=== PATIENT | male | born 1940 | race Caucasian/White ===

== ENCOUNTER 2017-12-31 12:47 | Inpatient (IN) | payer MEDICARE, OTHER ==
[~2017-12-31] VITALS: Ht 175.3 cm; Wt 75.5 kg
--- NOTE | ~2017-12-31 | HP ---
PATIENT: DONIS ROSARIO MEDICAL RECORD: [id number] ACCOUNT: [id number] LOCATION:[address] : 39 ADMISSION DATE: 12/31/17 HISTORY AND PHYSICAL EXAMINATION REASON FOR ADMISSION: Confusion, fever, and cough. HISTORY OF PRESENT ILLNESS: The patient is a 77-year-old male with past history of paroxysmal atrial fibrillation, essential hypertension, and hyperlipidemia. The patient had sinusitis a week and a half ago that was treated with Augmentin. That seemed to improve, but he has had 3 days prior to admission while he was at work at [employer] he felt like something hit him and he just felt very tired. He said he had a cough that became worse over the next couple of days. His said that he did not feel feverish. He did not check his temperature. He came to the office this afternoon looking very ill and somewhat confused. His O2 sat was 88% initially, he was given a DuoNeb updraft and placed on and his sat improved to 92%. He had obvious audible wheezes, right lung greater than left. Chest x-ray showed some right hilar opacity, but no overt infiltrate. The patient was directly admitted for exacerbation of COPD with probable right middle lobe pneumonia and hypoxemia. He denies any leg swelling, sharp chest pain, or hemoptysis. PAST MEDICAL HISTORY: COPD, remote smoker, hypertension, hypothyroidism, hyperlipidemia, history of anxiety, prostate cancer, and post-prostatectomy. PAST SURGICAL HISTORY: Tonsillectomy, cardiac catheterization, cataract removal, and prostatectomy. FAMILY HISTORY: Father of stroke. Mother with dementia and heart disease. SOCIAL HISTORY: , remote smoker, still drinks alcohol, but not heavily. ALLERGIES: Antihistamines, steroids, and pravastatin. HOME MEDICATIONS: Losartan 100 mg a day, amlodipine 5 mg a day, Coreg 12.5 b.i.d., aspirin 81 mg a day, atorvastatin 40 mg at bedtime, levothyroxine 0.112 mg p.o. daily, Xanax 0.5 at bedtime p.r.n. anxiety, and Prilosec 20 mg daily. REVIEW OF SYSTEMS: GENERAL: He has been fatigued for the last 3-4 days. Denies fever. He has had poor appetite. HEENT: No recent visual change, sinus congestion, or sore throat. RESPIRATORY: He has had a dry cough that has been more pronounced for the last 2-3 days. Denies chest pain, but has noted mild exertional shortness of breath. No hemoptysis. CARDIAC: No palpitations, PND, edema, or chest pain. GASTROINTESTINAL: No nausea, vomiting, change in stools, blood per rectum or reflux. MUSCULOSKELETAL: He has arthralgias in the lumbar spine without sciatica. ENDOCRINE: Denies polyuria, polydipsia, heat or cold intolerance. NEUROLOGIC: Denies memory loss, but what has been a little confused for the last 2 days. Denies history of seizures. INTEGUMENT: No rash or itching. PHYSICAL EXAMINATION: HISTORY AND PHYSICAL [id number] DONIS ROSARIO VITAL SIGNS: Blood pressure 180/69, heart rate was 82 and regular, respirations were 20 with a temperature of 99 degrees Fahrenheit. GENERAL: The patient is awake and oriented, but fatigued appearing. HEENT: Normocephalic. Eyes were clear with lens implants both eyes. Sclerae nonicteric. Oropharynx dry mucous membranes. NECK: Supple with faint bruits bilaterally. CHEST: He has expiratory wheezes in the right upper lobe. Left lung is clear. HEART: Tachycardic without murmur. ABDOMEN: Soft, nontender throughout. Bowel sounds are active. Liver, kidney, spleen not palpable. GENITOURINARY: Unremarkable. EXTREMITIES: No CC&E. NEUROLOGICAL: The patient is oriented to person and place, but not time. No localizing motor or sensory deficits are appreciated. LABORATORY DATA: His white count is 9100 with 75 polys, 11 lymphs. H&H is 15 and 43 respectively. Potassium is 4.2, BUN and creatinine 22 and 0.9, glucose 127 nonfasting. TSH 0.71. Urinalysis is pending. Chest x-ray showed COPD changes with flat diaphragms. Questionable infiltrate in the right middle lobe. ASSESSMENT: 1. Chronic obstructive pulmonary disease exacerbation with hypoxemia. 2. Possible right middle lobe pneumonia, community-acquired. 3. Recent sinusitis. 4. Hypertension. 5. Paroxysmal atrial fibrillation, currently in sinus rhythm. 6. Hyperlipidemia. 7. History of prostate cancer. PLAN: The patient will be admitted for pulmonary updrafts, IV antibiotics, cultures of blood and urine, supplemental O2. Further workup pending clinical course. We will check a D-dimer as well. TRANSINT:[id number] Voice Confirmation ID: [id number] DOCUMENT ID: [id number] MARGIE STEINER MD at 0756 CC: [id number] DICTATION DATE: 12/31/17 173 OIL HEATERMAN: 12/31/17 2307 ADM IN [facility] [address] [place] [address]
[2017-12-31 14:36] VITALS: BP 180/69; Ht 175.3 cm; Wt 75.5 kg
[2017-12-31 14:50] LABS: BASOPHILS 0.1 % (0-2); EOSINOPHILS 0.2 % (0-7); HEMATOCRIT 43.3 % (42.0-54.0); IMMATURE GRANULOCYTES 0.4 % (0-5); LYMPHOCYTES 11.1 % (15-50); MCH 30.2 pg (26.0-34.0); MCHC 34.6 g/dL (31.0-37.0); MCV 87.3 fL (80.0-100.0); MEAN PLATELET VOLUME 10.2 fL (7.4-10.4); NEUTROPHILS 75.2 % (40-80); PLATELET COUNT 165 10x3/uL (130-400); RBC 4.96 10x6/uL (4.20-6.10); WBC 9.1 10x3/uL (4.8-10.8)
[2017-12-31 15:55] LABS: CALC OSMOLALITY 274 mosm/kg (275-300); CREATININE - SERUM 0.9 mg/dL (0.6-1.3); GLUCOSE 127 mg/dL (74-106); POTASSIUM - SERUM 4.2 mmol/L (3.5-5.1); SODIUM 135 mmol/L (136-145); UREA NITROGEN 22 mg/dL (7-18); eGFR NON AFRICAN AMERICAN 87 mL/min (90-120)
[2017-12-31 15:56] LABS: CALCIUM 8.6 mg/dL (8.5-10.1); CARBON DIOXIDE 31.3 mmol/L (21.0-32.0); CHLORIDE - SERUM 97 mmol/L (98-107); T4 THYROXINE 8.4 ug/dL (4.7-13.3); THYROID STIMULATING HORMONE 0.71 uIU/mL (0.36-3.74)
[2017-12-31] MEDS ORDERED: NORVASC5 MG PO (16:00)
[2017-12-31] MEDS ORDERED: LEVOTHYROXINE112 MCG PO (16:00)
[2017-12-31] MEDS ORDERED: LEVOTHYROXINE125 MCG PO (16:01)
[2017-12-31] MEDS ORDERED: COZAAR100 MG PO (16:03)
[2017-12-31] MEDS ORDERED: OMEPRAZOLE20 M1 PO (16:03)
[2017-12-31] MEDS ORDERED: COREG12.5 MG PO (16:04)
[2017-12-31 16:10] VITALS: BP 109/58
[2017-12-31 19:53] LABS: APPEARANCE CLEAR (CLEAR); BILIRUBIN NEGATIVE (NEGATIVE); COLOR YELLOW (YELLOW); GLUCOSE NEGATIVE (NEGATIVE); KETONE NEGATIVE (NEGATIVE); NITRITE NEGATIVE (NEGATIVE); PROTEIN TRACE mg/dL (NEGATIVE); RED CELLS - URINE 0-5 /hpf (0-5); UROBILINOGEN NORMAL (NORMAL); WHITE CELLS - URINE 0-5 /hpf (0-5)
[2017-12-31 20:00] VITALS: BP 125/39
[2018-01-01 04:00] VITALS: BP 140/64
[2018-01-01 05:16] LABS: BASOPHILS 0 % (0-2); EOSINOPHILS 0 % (0-7); HEMATOCRIT 42.5 % (42.0-54.0); HEMOGLOBIN 14.9 g/dL (13.5-17.5); IMMATURE GRANULOCYTES 0.3 % (0-5); LYMPHOCYTES 13.2 % (15-50); MCH 30.3 pg (26.0-34.0); MCHC 35.1 g/dL (31.0-37.0); MCV 86.4 fL (80.0-100.0); MEAN PLATELET VOLUME 10.7 fL (7.4-10.4); NEUTROPHILS 83.5 % (40-80); PLATELET COUNT 158 10x3/uL (130-400); RBC 4.92 10x6/uL (4.20-6.10)
[2018-01-01 05:24] LABS: CALC OSMOLALITY 275 mosm/kg (275-300); CALCIUM 8.3 mg/dL (8.5-10.1); CARBON DIOXIDE 26.6 mmol/L (21.0-32.0); CHLORIDE - SERUM 99 mmol/L (98-107); GLUCOSE 150 mg/dL (74-106); SODIUM 135 mmol/L (136-145); UREA NITROGEN 20 mg/dL (7-18); WBC 3.7 10x3/uL (4.8-10.8); eGFR NON AFRICAN AMERICAN 77 mL/min (90-120)
[2018-01-01 09:35] VITALS: BP 148/68
[2018-01-01 18:42] VITALS: BP 138/62
[2018-01-01 20:00] VITALS: BP 157/68
[2018-01-02 06:10] LABS: BASOPHILS 0 % (0-2); EOSINOPHILS 0 % (0-7); HEMATOCRIT 43.6 % (42.0-54.0); HEMOGLOBIN 14.9 g/dL (13.5-17.5); IMMATURE GRANULOCYTES 0.2 % (0-5); LYMPHOCYTES 7.2 % (15-50); MCH 29.9 pg (26.0-34.0); MCHC 34.2 g/dL (31.0-37.0); MCV 87.6 fL (80.0-100.0); MEAN PLATELET VOLUME 10.4 fL (7.4-10.4); MONOCYTES 3.7 % (2-11); NEUTROPHILS 88.9 % (40-80); RBC 4.98 10x6/uL (4.20-6.10); RDW 13.3 % (11.5-14.5)
[2018-01-02 06:16] LABS: PLATELET COUNT 231 10x3/uL (130-400); WBC 12.3 10x3/uL (4.8-10.8)
[2018-01-02 06:19] LABS: CALC OSMOLALITY 282 mosm/kg (275-300); CALCIUM 8.9 mg/dL (8.5-10.1); CHLORIDE - SERUM 104 mmol/L (98-107); CREATININE - SERUM 0.9 mg/dL (0.6-1.3); GLUCOSE 146 mg/dL (74-106); MAGNESIUM - SERUM 2.3 mg/dL (1.8-2.4); PHOSPHOROUS 2.7 mg/dL (2.5-4.9); POTASSIUM - SERUM 4.2 mmol/L (3.5-5.1); SODIUM 139 mmol/L (136-145); UREA NITROGEN 19 mg/dL (7-18); eGFR NON AFRICAN AMERICAN 87 mL/min (90-120)
[2018-01-02 09:35] VITALS: BP 142/60
[2018-01-02 12:26] VITALS: BP 130/70
[2018-01-02 16:57] VITALS: BP 154/72
[2018-01-02 21:06] VITALS: BP 158/57
[2018-01-03 04:32] VITALS: BP 121/76
[2018-01-03 08:27] VITALS: BP 150/76
[2018-01-03 11:12] VITALS: BP 140/75
[2018-01-03 16:18] VITALS: BP 142/70
[2018-01-03 19:00] VITALS: BP 158/71
[2018-01-04 01:10] VITALS: BP 154/57
[2018-01-04 05:28] VITALS: BP 160/75
[2018-01-04 09:27] VITALS: BP 169/79
[2018-01-04 12:09] VITALS: BP 148/68
[2018-01-04 15:05] VITALS: BP 172/70
[2018-01-04 20:00] VITALS: BP 155/87
[2018-01-05] VITALS: BP 151/77
[2018-01-05 04:00] VITALS: BP 148/76
[2018-01-05] MEDS ORDERED: XOPENEX 1.1.25 MG/3 UPD (07:52)
[2018-01-05] MEDS ORDERED: BROVANA15 MCG/2 M INH (07:52)
[2018-01-05] MEDS ORDERED: ATROVENT 0.02%2.5 ML UPD (07:53)
[2018-01-05] MEDS ORDERED: SINGULAIR10 MG PO (07:54)
[2018-01-05] MEDS ORDERED: BENZONATATE200 MG PO (07:54)
[2018-01-05] MEDS ORDERED: MUCINEX600 MG PO (07:54)
[2018-01-05] MEDS ORDERED: XANAX0.25 MG PO (07:56)
[2018-01-05] MEDS ORDERED: PREDNISONE20 MG PO (07:56)
[2018-01-05] MEDS ORDERED: LEVAQUIN500 MG PO (07:57)
[2018-01-05 08:25] VITALS: BP 158/78
[2018-01-05 11:02] VITALS: BP 143/76
[2018-01-05] MEDS ORDERED: PROAIR HFA8.5 GM INH (12:33)
[2018-01-05] MEDS ORDERED: IPRAT-ALBUT 0.5-3 ML UPD (12:36)
[2018-01-05] MEDS ORDERED: TRELEGY ELLIPTA IH (12:39)
== END 2018-01-05 15:10 | disposition home or self-care (01) | DRG 177 ==
LOC: EDBD 12:47 → D.M2 12:47 → D.SDCHOLD 12:47 → D.M2 13:11
PROVIDERS: Family Medicine
DX: J15.6 Pneumonia due to other Gram-negative bacteria (principal); J96.01 Acute respiratory failure with hypoxia; G93.41 Metabolic encephalopathy; J44.0 Chronic obstructive pulmonary disease with (acute) lower respiratory infection; J44.1 Chronic obstructive pulmonary disease with (acute) exacerbation; J13 Pneumonia due to Streptococcus pneumoniae; J20.9 Acute bronchitis, unspecified; E03.9 Hypothyroidism, unspecified; D72.819 Decreased white blood cell count, unspecified; I48.91 Unspecified atrial fibrillation; I10 Essential (primary) hypertension; E78.5 Hyperlipidemia, unspecified; Z85.46 Personal history of malignant neoplasm of prostate; Z72.0 Tobacco use

== ENCOUNTER → 2018-01-26 08:24 | Outpatient (CLI) | payer MEDICARE, OTHER ==
[2017-12-31 14:36] VITALS: BMI 24.5
[~2018-01-26 08:24] MED LIST: ATROVENT 0.02%2.5 ML UPD; BENZONATATE200 MG PO; BROVANA15 MCG/2 M INH; COREG12.5 MG PO; COZAAR100 MG PO; IPRAT-ALBUT 0.5-3 ML UPD; LEVAQUIN500 MG PO; LEVOTHYROXINE112 MCG PO; LEVOTHYROXINE125 MCG PO; MUCINEX600 MG PO; NORVASC5 MG PO; OMEPRAZOLE20 M1 PO; PREDNISONE20 MG PO; PROAIR HFA8.5 GM INH; SINGULAIR10 MG PO; TRELEGY ELLIPTA IH; XANAX0.25 MG PO; XOPENEX 1.1.25 MG/3 UPD
== END | disposition home or self-care (01) ==
LOC: D.RT 08:00
DX: J44.9 Chronic obstructive pulmonary disease, unspecified (principal)

== ENCOUNTER → 2018-02-18 14:30 | Outpatient (CLI) | payer MEDICARE, OTHER ==
[2017-12-31 14:36] VITALS: BMI 24.5
== END | disposition home or self-care (01) ==
LOC: D.LAB 14:30
DX: R19.7 Diarrhea, unspecified (principal)

== ENCOUNTER 2019-03-22 13:06 | Inpatient (IN) | payer MEDICARE, OTHER ==
[~2019-03-22] VITALS: Ht 175.3 cm; Wt 69.4 kg
[2019-03-22] MEDS ORDERED: PREDNISONE1 MG PO (14:01)
--- NOTE | 2019-03-22 15:40 | NUR ---
ARRIVE TO ROOM VIA WHEELCHAIR FROM DOCTOR OFFICE. AMBULATES TO CHAIR. ALERT AND ORIENTED X4. GAIT STEADY. SITE IV LT FA 22G. REFUSE SCDs. UP AD MARLI. DENIES SOB OR PAIN AT THIS TIME. CONTINUE ADMISSION PROCESS. CONTINUE PLAN OF CARE AND SAFETY PRECAUTIONS.
[2019-03-22 17:05] VITALS: BP 130/54
--- NOTE | 2019-03-22 17:17 | HP ---
PATIENT: DONIS ROSARIO MEDICAL RECORD: [id number] ACCOUNT: [id number] LOCATION:[address] : 39 ADMISSION DATE: 03/22/19 PCP: MARGIE STEINER MD HISTORY AND PHYSICAL EXAMINATION REASON FOR ADMISSION: Fever and chills. HISTORY OF PRESENT ILLNESS: The patient is a 78-year-old male with history of COPD and prostate cancer. The patient states he has been feeling well up until yesterday evening at 5:00 p.m., he had some chills, rigors, and fever subjectively. He went to bed and got to urinate later in the night, but he almost did not get there because he was so dizzy and lightheaded. He has felt better this morning, came in to be evaluated. He denies increasing cough, congestion, abdominal pain, dysuria, nocturia, but noted that his urine was somewhat dark this morning when he urinated. He was diagnosed this year with PMRs, on tapering prednisone 4 mg a day and doing better. He has lost about 15 pounds over the last 2 years, etiology unknown. He had lower endoscopy essentially normal per Dr. Ch for chronic constipation. PAST MEDICAL HISTORY: Other past history: Paroxysmal atrial fibrillation; essential hypertension; hyperlipidemia; PMR; COPD with hypoxemia; hospitalized 01/07 for respiratory failure, but did not require mechanical ventilation; remote nicotine use; hypothyroidism; depression; anxiety. SURGICAL HISTORY: Tonsillectomy, he has had cardiac catheterization, cataract surgery OU, and prostatectomy for cancer. He saw Dr. Colbert recently, had normal PSA he states. FAMILY HISTORY: Mother had dementia and heart disease. Dad of stroke. SOCIAL HISTORY: He is , remote smoker, still drinks alcohol occasionally. He works in [employer] and has for years. ALLERGIES: STEROIDS, ANTIHISTAMINES, AND PRAVASTATIN. MEDICATIONS: Prednisone 4 mg p.o. daily, Coreg 12.5 mg p.o. q.12 hours, omeprazole 20 mg p.o. q.a.m., losartan 100 mg a day, alprazolam 0.25 q.6 hours p.r.n. anxiety, amlodipine 5 mg a day, Lexapro 10 mg a day, levothyroxine 112 mcg p.o. q.a.m. a.c., MiraLax 17 grams p.o. daily, Restoril 15 mg at bedtime p.r.n. sleep. REVIEW OF SYSTEMS: CONSTITUTIONAL: He has been fatigued, had a gradual weight loss with fair appetite over the last 2 years. He noted chills and fever last night. HEENT: No recent visual change, headache, sinus congestion, or sore throat. RESPIRATORY: He has intermittent cough, nonproductive. His O2 sat at home was over 100% on room air. Denies pleurisy or hemoptysis. CARDIAC: No exertional rest chest pain, claudication or edema. GASTROINTESTINAL: No nausea, vomiting, change in stools or blood per rectum. GENITOURINARY: Nocturia once nightly. No incontinence or dysuria. He did have somewhat darker urine in the lab this morning. PSYCHIATRIC: Denies depressed mood, currently on meds. No history of seizures. INTEGUMENT: No rash or itching. PHYSICAL EXAMINATION: HISTORY AND PHYSICAL [id number] DONIS ROSARIO VITAL SIGNS: His height is 69 inches, his weight is 153 pounds He was 178 pounds 2 years ago and 160 pounds 1 year ago. His temperature is 97.9 degrees Fahrenheit, blood pressure is 112/60 with a heart rate of 80 without ectopy. GENERAL: The patient appears fatigued, but alert. His eyes are clear and nonicteric. Oropharynx unremarkable. His mucous membranes are moist. NECK: Supple. CHEST: Distant breath sounds without wheeze or rales. HEART: Regular rate without murmur. ABDOMEN: Soft, nontender throughout. Bowel sounds are active. RECTAL: Deferred. EXTREMITIES: No CCE. NEUROLOGIC: Oriented to person, place, and time. Cranial nerves intact. Gait is normal. PSYCHIATRIC: No obvious depressed mood appreciated. LABORATORY DATA: His hepatic panel shows a total bilirubin of 2.6, normal direct. His white blood cell count is elevated at 27.4 thousand with 86% neutrophils, 5% lymphocytes, 2.4% monocytes. Creatinine is 1.21, glucose is 141 nonfasting. UA shows specific gravity greater than 1.03, small bilirubin, positive nitrite, trace protein, negative ketones. Micro shows 2-3 white and red cells, 1+ bacteria. Chest x-ray shows COPD changes. No obvious infiltrative or change in the last year. ASSESSMENT: 1. Probable sepsis. 2. Dehydration. 3. Hyperbilirubinemia. 4. Chronic weight loss. 5. Bacteriuria, possible urosepsis. 6. History of PAF. 7. History of prostate cancer, in remission. PLAN: The patient will be admitted for IV fluid challenge. Check a lactate level. Broad-spectrum IV antibiotics. Further workup pending clinical course. TRANSINT:[id number] Voice Confirmation ID: [id number] DOCUMENT ID: [id number] MARGIE STEINER MD at 1717 CC: [id number] DICTATION DATE: 03/22/19 1237 BEAD INSPECTOR: 03/22/19 1330 ADM IN [place] [id number] [place] [id number]
[2019-03-22 17:18] VITALS: BP 130/84; BMI 22.6
--- NOTE | 2019-03-22 17:54 | NUR ---
ALERT AND ORIENTED X4. SITTING UP IN BED. UA COLLECTED AND TAKEN TO LAB. FAMILY AT BEDSIDE. DENIES ANY NEEDS AT THIS TIME. CONTINUE PLAN OF CARE AND SAFETY PRECAUTIONS.
[2019-03-22 17:59] LABS: APPEARANCE CLEAR (CLEAR); BILIRUBIN NEGATIVE (NEGATIVE); COLOR YELLOW (YELLOW); GLUCOSE NEGATIVE (NEGATIVE); KETONE NEGATIVE (NEGATIVE); NITRITE NEGATIVE (NEGATIVE); PROTEIN NEGATIVE (NEGATIVE); UROBILINOGEN NORMAL (NORMAL)
--- NOTE | 2019-03-22 19:10 | NUR ---
EVENING ROUNDS MADE. PT SITTING UP IN BED RESTING. DENIES PAIN AT THIS TIME. NO FURTHER CONCERNS. FALL PRECAUTIONS IN PLACE. BED LOWERED AND LOCKED. CL IN REACH. WILL CTM.
[2019-03-22 20:00] VITALS: BP 116/55
[2019-03-23] VITALS: BP 126/57
[2019-03-23 04:00] VITALS: BP 127/64
[2019-03-23 05:34] LABS: BASOPHILS 0 % (0-2); EOSINOPHILS 0 % (0-7); HEMATOCRIT 39.7 % (42.0-54.0); HEMOGLOBIN 13.8 g/dL (13.5-17.5); IMMATURE GRANULOCYTES 0.3 % (0-5); LYMPHOCYTES 5.2 % (15-50); MCH 31.5 pg (26.0-34.0); MCHC 34.8 g/dL (31.0-37.0); MCV 90.6 fL (80.0-100.0); MEAN PLATELET VOLUME 10.7 fL (7.4-10.4); MONOCYTES 1.4 % (2-11); NEUTROPHILS 93.1 % (40-80); RBC 4.38 10x6/uL (4.20-6.10); RDW 13.4 % (11.5-14.5); WBC 16.5 10x3/uL (4.8-10.8)
[2019-03-23 05:53] LABS: CALC OSMOLALITY 290 mosm/kg (275-300); CALCIUM 8.7 mg/dL (8.5-10.1); CARBON DIOXIDE 29.1 mmol/L (21.0-32.0); CHLORIDE - SERUM 108 mmol/L (98-107); GLUCOSE 144 mg/dL (74-106); POTASSIUM - SERUM 4.5 mmol/L (3.5-5.1); SODIUM 143 mmol/L (136-145); UREA NITROGEN 20 mg/dL (7-18); eGFR NON AFRICAN AMERICAN 76 mL/min (90-120)
[2019-03-23 05:56] LABS: PLATELET COUNT 183 10x3/uL (130-400)
[2019-03-23 08:06] VITALS: BP 135/62
[2019-03-23 12:08] VITALS: Ht 175.3 cm; Wt 69.4 kg
[2019-03-23 12:17] VITALS: BP 139/55
--- NOTE | 2019-03-23 17:57 | NUR ---
ALERT AND ORIENTED X4. SITTING UP IN BED. SPOUSE AT BEDSIDE. IV INFUSING NS @ 75ml/HR ORDERED. SHOWER AND LINEN CHANGE COMPLETE. DENIES SOB OR PAIN. CONTINUE PLAN OF CARE AND SAFETY PRECAUTIONS.
[2019-03-23 18:21] VITALS: BP 130/60
--- NOTE | 2019-03-23 19:22 | NUR ---
AWAKE AND ALERT SKIN WARM AND DRY LCTALEFT FA IV PATENT PT WALKS AROUND ROOM ALOT BED IS LOW AND LOCKED
[2019-03-23 20:00] VITALS: BP 130/55
[2019-03-24] VITALS: BP 122/57
--- NOTE | 2019-03-24 01:51 | NUR ---
I have reviewed this patient and I concur with the Shift Assessment completed by the Licensed Practical Nurse today this shift.
[2019-03-24 04:00] VITALS: BP 121/62
[2019-03-24 06:47] LABS: BASOPHILS 0 % (0-2); EOSINOPHILS 0 % (0-7); HEMATOCRIT 37.5 % (42.0-54.0); HEMOGLOBIN 12.7 g/dL (13.5-17.5); IMMATURE GRANULOCYTES 0.4 % (0-5); LYMPHOCYTES 4.1 % (15-50); MCH 30.6 pg (26.0-34.0); MCHC 33.9 g/dL (31.0-37.0); MCV 90.4 fL (80.0-100.0); MEAN PLATELET VOLUME 10.9 fL (7.4-10.4); NEUTROPHILS 92.5 % (40-80); PLATELET COUNT 201 10x3/uL (130-400); RBC 4.15 10x6/uL (4.20-6.10); RDW 13.5 % (11.5-14.5); WBC 19.6 10x3/uL (4.8-10.8)
--- NOTE | 2019-03-24 07:30 | NUR ---
A/A/OX4. DENIES ANY PAIN OR DISCOMFORT AT THIS TIME AND NO REQUESTS VOICED. IV PATENT TO LEFT FOREARM WITHOUT REDNESS OR EDEMA AT SITE. ASSESSMENT COMPLETED AND WILL CONTINUE POC. CALL LIGHT IN REACH.
[2019-03-24 07:37] LABS: ALBUMIN 2.6 g/dL (3.4-5.0); BILIRUBIN - DIRECT 0.14 mg/dL (0.00-0.30); BILIRUBIN - INDIRECT 0.45 mg/dL (0.00-1.00); BILIRUBIN - TOTAL 0.59 mg/dL (0.2-1.3); PROTEIN - SERUM 5.2 g/dL (6.4-8.2)
[2019-03-24 09:40] VITALS: BP 113/59
--- NOTE | 2019-03-24 10:30 | NUR ---
PT IS CONCERNED ABOUT THE PREDNISONE THAT HAS BEEN ORDERED FOR HIM. STATES HE HAS BEEN ON 4 MG DAILY AT HOME AND NOW HE IS QUESTIONING THE 40MG ORDERED. EXPLAINED TO PT HE HAD BEEN ON HIGH DOSE HERE FOR PAST 3 DAYS AND IT WOULD NEED TO BE WEANED DOWN. HE STILL INSISTS I CALL DR. STEINER AND CONFIRM DOSAGE. DR. STEINER CONTACTED AND HE TOLD ME THE SAME THING I HAD TOLD PT EARLIER. INFORMED PT OF DR. PENA REASONING FOR HIGHER DOSAGE AND DR. STEINER STATED HE WOULD TALK WITH HIM MORE ABOUT IT. PT AGREED TO TAKE THE MEDICATION.
--- NOTE | 2019-03-24 14:15 | NUR ---
I have reviewed this patient and I concur with the Shift Assessment completed by the Licensed Practical Nurse today this shift.
[2019-03-24 18:52] VITALS: BP 133/74
--- NOTE | 2019-03-24 21:00 | NUR ---
EVENING ROUNDS COMPLETED. REPORT RECEIVED. PT SITTING UP IN BED WITH EYES OPEN, RR EVEN AND UNLABORED. BED IN LOW POSITION. NO S/S OF DISTRESS NOTED. EVENING MEDICATIONS ADMINISTERED WITHOUT ISSUE. PT DENIES FURTHER NEEDS AT THIS TIME. CALL LIGHT IN REACH. WILL CTM.
[2019-03-25 04:00] VITALS: BP 143/63
[2019-03-25 06:14] LABS: BASOPHILS 0.1 % (0-2); EOSINOPHILS 0 % (0-7); HEMATOCRIT 39.5 % (42.0-54.0); HEMOGLOBIN 13.3 g/dL (13.5-17.5); IMMATURE GRANULOCYTES 0.6 % (0-5); LYMPHOCYTES 11.1 % (15-50); MCH 30.5 pg (26.0-34.0); MCHC 33.7 g/dL (31.0-37.0); MCV 90.6 fL (80.0-100.0); MEAN PLATELET VOLUME 10.8 fL (7.4-10.4); MONOCYTES 6.7 % (2-11); NEUTROPHILS 81.5 % (40-80); PLATELET COUNT 198 10x3/uL (130-400); RBC 4.36 10x6/uL (4.20-6.10); RDW 13.4 % (11.5-14.5); WBC 16.4 10x3/uL (4.8-10.8)
--- NOTE | 2019-03-25 07:40 | NUR ---
A/A/OX4. RESTING IN BED AND DENIES ANY PAIN OR DISCOMFORT. NO REQUESTS VOICED. ASSESSMENT COMPLETED AND WILL CONTINUE POC. SL PATENT TO LEFT HAND WITH NO REDNESS OR EDEMA AT SITE.
[2019-03-25 08:27] VITALS: BP 143/71
[2019-03-25] MEDS ORDERED: LEXAPRO10 MG PO (10:55)
[2019-03-25] MEDS ORDERED: LEVOFLOXACIN500 MG PO (10:57)
[2019-03-25] MEDS ORDERED: PREDNISONE10 MG PO (11:00)
[2019-03-25 11:51] VITALS: BP 133/64
--- NOTE | 2019-03-25 13:12 | NUR ---
DISCHARGE INSTRUCTIONS REVIEWED WITH PT AND VERBALIZES UNDERSTANDING WITH NO QUESTIONS. SL REMOVED WITH CATH TIP INTACT. LEFT FLOOR VIA W/C WITH ALL PERSONAL BELONGINGS AND LEFT FACILITY VIA PRIVATE VEHICLE WITH HIS .
--- NOTE | 2019-03-26 09:02 | MORECARE ---
CASE MANAGEMENT DISCHARGE SUMMARY PATIENT: DONIS ROSARIO UNIT: [id number] ADM DATE: 03/22/19 AGE: 79 : 39 SEX: M ROOM/BED: D.2109 AUTHOR: DAREN GUERRA PHYSICIAN: REFERRING PHYSICIAN: MARGIE STEINER MD DATE OF SERVICE: 03/26/19 Discharge Plan Patient Name: DONIS ROSARIO Facility: [facility]:[place] : 1940 Planned Disposition: Home Anticipated Discharge Date: 03/25/19 Discharge Date: 03/25/2019 Expected LOS: 3 Initial Reviewer: [id number] Initial Review Date: 03/26/2019 Generated: 03/26/19 10:02 am Patient Name: DONIS ROSARIO Page [id number] at 0902 All edits/amendments must be made on the electronic document DICTATION DATE: 03/26/19901 DIRECTOR CASE: HUGO 03/26/19901 RPT#: [id number] DC DATE:03/25/19 STATUS: DIS IN [facility] [address] [place] [address] END OF REPORT
[2019-03-29 14:07] LABS: EHRLICHIA CHAFF IGG Negative (Neg:<1:64); EHRLICHIA CHAFF IGM Negative (Neg:<1:20); HGE IGG TITER Negative (Neg:<1:64); HGE IGM TITER Negative (Neg:<1:20)
[2019-03-30 12:12] LABS: F. TULARENSIS - IGG Negative (Negative); F. TULARENSIS - IGM Negative (Negative)
[2019-03-30 17:10] LABS: RMSF IGM 0.27 index (0.00-0.89)
== END 2019-03-25 13:14 | disposition home or self-care (01) | DRG 872 ==
LOC: D.M2 13:06
PROVIDERS: ADMIT Family Medicine; ATTEND Family Medicine
DX: A41.9 Sepsis, unspecified organism (principal); N39.0 Urinary tract infection, site not specified; E86.0 Dehydration; E80.6 Other disorders of bilirubin metabolism; I48.0 Paroxysmal atrial fibrillation; I10 Essential (primary) hypertension; E78.5 Hyperlipidemia, unspecified; E03.9 Hypothyroidism, unspecified; J44.9 Chronic obstructive pulmonary disease, unspecified; Z87.891 Personal history of nicotine dependence; M35.3 Polymyalgia rheumatica

== ENCOUNTER 2019-11-16 19:20 | Emergency (ER) | payer MEDICARE, OTHER ==
[~2019-11-16] VITALS: Ht 175.3 cm; Wt 69.1 kg
[~2019-11-16 19:20] MED LIST changes: +LEVOFLOXACIN500 MG PO; +LEXAPRO10 MG PO; +PREDNISONE1 MG PO; +PREDNISONE10 MG PO
[2019-11-16 19:24] VITALS: Ht 175.3 cm; Wt 69.1 kg
[2019-11-16 20:36] LABS: BASOPHILS 0.2 % (0-2); EOSINOPHILS 1.8 % (0-7); HEMATOCRIT 44.3 % (42.0-54.0); HEMOGLOBIN 14.9 g/dL (13.5-17.5); IMMATURE GRANULOCYTES 0.2 % (0-5); LYMPHOCYTES 11.3 % (15-50); MCHC 33.6 g/dL (31.0-37.0); MCV 89.1 fL (80.0-100.0); MEAN PLATELET VOLUME 10.1 fL (7.4-10.4); MONOCYTES 10.2 % (2-11); NEUTROPHILS 76.3 % (40-80); PLATELET COUNT 217 10x3/uL (130-400); RBC 4.97 10x6/uL (4.20-6.10); RDW 13.2 % (11.5-14.5); WBC 12.6 10x3/uL (4.8-10.8)
[2019-11-16 20:41] LABS: NITRITE NEGATIVE (NEGATIVE)
[2019-11-16 20:42] LABS: BILIRUBIN NEGATIVE (NEGATIVE); GLUCOSE NEGATIVE (NEGATIVE); KETONE NEGATIVE (NEGATIVE); UROBILINOGEN NORMAL (NORMAL)
[2019-11-16 20:43] LABS: BACTERIA FEW /hpf (NEGATIVE); RED CELLS - URINE >50 /hpf (0-5); WHITE CELLS - URINE 0-5 /hpf (NEGATIVE)
[2019-11-16 20:47] LABS: APTT 28.6 SECONDS (22.8-39.4); INR 1.05 (0.85-1.17); PROTIME 13.6 SECONDS (11.6-15.0)
[2019-11-16 21:03] LABS: ANION GAP 9.8 mmol/L (8-16); CARBON DIOXIDE 29.1 mmol/L (21.0-32.0); CREATININE - SERUM 1.1 mg/dL (0.6-1.3); POTASSIUM - SERUM 3.9 mmol/L (3.5-5.1)
[2019-11-16 21:08] LABS: ALBUMIN 3.4 g/dL (3.4-5.0); BILIRUBIN - TOTAL 0.87 mg/dL (0.2-1.3); PROTEIN - SERUM 6.4 g/dL (6.4-8.2)
[2019-11-17 00:15] VITALS: BP 158/91
== END 2019-11-17 00:15 | disposition short-term general hospital (02) ==
LOC: D.ER 19:20
PROVIDERS: Family Medicine
DX: N30.91 Cystitis, unspecified with hematuria (principal); E07.9 Disorder of thyroid, unspecified; I10 Essential (primary) hypertension; J44.9 Chronic obstructive pulmonary disease, unspecified; K21.9 Gastro-esophageal reflux disease without esophagitis; Z72.0 Tobacco use